=== PATIENT | male | born 1995 | race Caucasian/White ===

== ENCOUNTER 2019-03-01 21:12 | Emergency (ER) | payer SELFPAY ==
[~2019-03-01] VITALS: Ht 172.7 cm; Wt 104.3 kg
[~2019-03-01 21:12] MED LIST: BACTRIM DS 8001 TA1 PO; CEPHALEXIN500 M1 PO; KEFLEX500 M1 PO; MOTRIN400 MG PO
[2019-03-01] MEDS ORDERED: SEPTDS PO (22:33)
[2019-03-01] MEDS ORDERED: CEPHALEXIN500 M1 PO (22:33)
== END 2019-03-01 22:36 | disposition home or self-care (01) ==
LOC: ED 21:12
DX: S80.861A Insect bite (nonvenomous), right lower leg, initial encounter (principal); W57.XXXA Bitten or stung by nonvenomous insect and other nonvenomous arthropods, initial encounter; Y93.89 Activity, other specified; Y92.89 Other specified places as the place of occurrence of the external cause; Y99.8 Other external cause status

== ENCOUNTER 2021-05-29 20:48 | Emergency (ER) | payer SELFPAY ==
[~2021-05-29] VITALS: Ht 172.7 cm; Wt 108.9 kg
[~2021-05-29 20:48] MED LIST changes: +SEPTDS PO
[2021-05-29] MEDS ORDERED: VIBRAMYCIN100 MG PO (22:22)
== END 2021-05-29 22:38 | disposition home or self-care (01) ==
LOC: ED 20:48
DX: S70.361A Insect bite (nonvenomous), right thigh, initial encounter (principal); Z96.22 Myringotomy tube(s) status; W57.XXXA Bitten or stung by nonvenomous insect and other nonvenomous arthropods, initial encounter; Y93.89 Activity, other specified; Y92.89 Other specified places as the place of occurrence of the external cause; Y99.8 Other external cause status